=== PATIENT | female | born 1985 | race Caucasian/White ===

== ENCOUNTER 2025-05-28 04:49 | Inpatient (IN) | payer OTHER, SELFPAY ==
[2025-05-28] VITALS (21 sets, daily range): BP systolic 121–146; BP diastolic 77–95; PULSE 65–89; RESP 16–20; TEMP 36.6–37.2; O2SAT 93–99; BMI 31.3; BMI 31.1; BMI 31.2
--- OUTSIDE RECORDS SUMMARY | 2025-05-28 04:51 | XMS_ITS | Clinical Summary ---
Author Organization [facility] Address [address] [place] [id number] Care Team Providers Care Media Services Coordinator Name Role Phone Pcp, No Primary Care Provider Unavailabl e Allergies Active Allergy Reactions Criticality Noted Date Comments Doxycycline Rash 03/23/2012 Methylprednisolone Other - Describe In Comment Field 05/26/2025 eyes inflammation Medications multivitamin capsule Take 1 capsule by mouth once daily. Active HYDROcodone-acet aminophen, 5-500 mg, (VICODIN) Tab tablet Take 1 tablet by mouth every 4 hours if needed for Pain. Max acetaminophen dose: 4000mg in 24 hrs. 12 tablet 0 012 Active ondansetron (ZOFRAN ODT) [address] 1 tablet on the tongue every 8 hours if needed for Nausea/Vomiting . 6 tablet 0 012 Active promethazine (PHENERGAN) 12.5 mg suppositoryIndic ations:Nausea and vomiting, unspecified vomiting type Insert 1 Suppository (12.5 mg) rectally every 6 hours if needed for Nausea/Vomiting . 10 Suppository 025 Active promethazine (PHENERGAN) 12.5 mg suppositoryIndic ations:Nausea and vomiting, unspecified vomiting type Insert 1 Suppository (12.5 mg) rectally every 6 hours if needed for Nausea/Vomiting . 10 Suppository 025 05/26 Discontinued Active Problems Problem Noted Date Diagnosed Date Endometriosis of uterus 04/30/2009 Infertility 04/30/2009 Dysplasia of cervix, unspecified 03/16/2007 Encounters Date Type Department Care Team Description 05/26/2025 6:01 AM CDT - 05/26/2025 1:27 PM CDT Emergency [facility] [address] [place] [address] Damian Lemon MD Nardi, Mikhail Rodríguez MD Nausea and vomiting, unspecified vomiting type (Primary Dx); Generalized abdominal pain Discharge Disposition: Home Self Care 05/26/2025 Travel from Last 3 Months Immunizations Immunization Administration Dates Next Due Hepatitis B (Adult) 06/11/2004,05/02/2001,1999 Td (Age >=7 Years) 10/23/1994 Tdap 12/11/2008 Tuberculin (PPD) 12/15/2010 Family History Medical History Relation Name Comments GI Disease Daughter Adopted child s brianda 2016. Short gut. Intestine is missing after drug reaction. Asthma Maternal Grandfather Matty COPD Hypertension Maternal Grandfather Matty Cancer Maternal Grandmother Carolina Lung ca ncer Diabetes Maternal Grandmother Carolina Thyroid Disease Mother Dee Panhypopituitarism Son Biolog[employer] l child of the patient. Relation Name Status Comments Brother Jerome Alive Daughter Alive Father Monica Jr Alive Maternal Grandfather Matty Alive Maternal Grandmother Carolina Alive Mother Dee Alive Paternal Grandfather Monica Sr Alive Paternal Grandmother Mariana Alive Sister Fay Alive Son Alive Social History Tobacco Use Types Packs/Day Years Used Date Smoking Tobacco: Former Smokeless Tobacco: Never Tobacco Cessation:Counseling Given: Yes Comments:She quit smoking around 2009. Alcohol Use Standard Drinks/Week Comments No 0 (1 standard drink = 0.6 oz pur e alcohol) Interpersonal Safety Answer Date Record ed Are you being hit, kicked, p ushed or yelled at (see row info)? 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 Gender Identity Not on file Sexual Orientation Not on file Obstetrics History Para Term AB IAB SAB Ectopic Multiple Livin g Live Births 0 0 0 0 0 0 0 0 0 0 Last Filed Vital Signs Vital Sign Reading Time Taken Comments Blood Pressure 125/82 05/26/2025 1:00 PM CDT Pulse 95 05/26/2025 1:00 PM CDT Temperature 36.7 C (98 F) 05/26/2025 6:06 AM CDT Respiratory Rate 16 05/26/2025 6:06 AM CDT Oxygen Saturation 97% 05/26/2025 1:00 PM CDT Inhaled Oxygen Concentration - - Weight 94.6 kg (208 lb 8 oz) 05/26/2025 6:06 AM CDT Height 170.2 cm (5' 7) 05/26/2025 6:06 AM CDT Body Mass Index 32.66 05/26/2025 6:06 AM CDT Plan of Treatment Health Maintenance Due Date Last Done Comments Depression screening for age 12+ 1995 BMI (ht and wt on same day) for age 18+ 2001 Pap test for age 21-65 10/28/2013 1, 09/25/2009, 09/25/2009, Additional history exists Tetanus booster 12/11/2018 12/11/2008, 10/23/1994 COVID-19 vaccine series ( season) 2024 08/31/2022, 08/27/2021, 12/18/2020, Additional history exists Influenza Vaccine (#1) 2025 Hepatitis B series for 19+ Completed 06/11, 05/02/2001, 07/27/2000 HIV for age 15-65 Completed 03/16/2007 Hepatitis C screening for age 18-79 Completed 03/16/2007 Pneumococcal series for age 6-49 Aged Out No longer eligible based on patient's age to complete this topic Procedures Procedure Name Priority Date/Time Associated Diagnosis Comments CT ABDOMEN PELVIS W STAT 05/26/2025 9 :28 AM CDT URINALYSIS MICROSCOPIC STAT 05/26/2025 8:09 AM CDT UA W/ SEDIMENT EXAM REFLEXED PER CRITERIA STAT 05/26/2025 8:09 AM CDT CBC WITH AUTO DIFFERENTIAL STAT 05/26/2025 6:19 AM CDT MAGNESIUM STAT 05/26/2025 6:19 AM CDT ,SERUM QUALITATIVE STAT 05/26/2025 6:19 AM CDT COMP METABOLIC PANEL STAT 05/26/2025 6:19 AM CDT CBC WITH AUTO DIFFERENTIAL STAT 05/26/2025 6:19 AM CDT DISTANCE LEARNING TECHNICIAN THIN PREP PAP DIAGNOSTIC IMAGED Routine 10/28/2010 5:10 PM 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 DYSPLASIA OF CERVIX UNSPECIFIED ANTI HIV 1/2 Routine 03/16/2007 10:40 AM CDT Screening Exam Venereal Disease ANTI HCV Routine 03/16/2007 10:40 AM CDT Screening Exam Venereal Disease from Last 3 Months or Most Recently Relevant to Health Maintenance Results * CT Abdomen Pelvis w IV (Oral Contrast NO) (05/26/2025 9:28 AM CDT) Anatomical Region Laterality Modality Abdomen, Pelvis, AORTA, LIVER, SPLEEN Computed Tomography Mikhail Mccarthy MD CT Final R esult * (ABNORMAL) URINALYSIS MICROSCOPIC (05/26/2025 8:09 AM CDT) RBC 0-2 0-2, None Seen /HPF 05/26/2025 8:29 AM CDT [facility] WBC 0-2 0-2, 3-5, None Seen /HPF 05/26/2025 8:29 AM T [facility] BACTERIA Moderate(A) None Seen, Rare, Few Bacteria/ HPF 05/26/2025 8:29 AM T [facility] EPITHELIAL CELLS Moderate(A) None Seen, Few Epi/HPF 05/26/2025 8:29 AM T [facility] Mucus Present 05/26/2025 8:29 AM T [facility] Urine URINE SPECIMEN / Unknown Non-Blood / Unknown 05/26/2025 8:09 AM CDT 05/26/2025 8:17 AM CDT Damian Lemon MD URINE Final Result [facility] [address] [address] * (ABNORMAL) UA W/ SEDIMENT EXAM REFLEXED PER CRITERIA (05/26/2025 8:09 AM CDT) COLOR Yellow Yellow Color 05/26/2025 8:29 AM [facility] CLARITY Clear Clear Clarity 05/26/2025 8:29 AM [facility] SPECIFIC GRAVITY,URINE >=1.030(A) 1.010, 1.015, 1.020, 1.025 05/26/2025 8:29 AM [facility] PH,URINE 6.0 6.0, 7.0, 8.0, 5.5, 6.5, 7.5, 8.5 05/26/2025 8:29 AM [facility] UROBILINOGEN, QUALITATIVE Normal Normal EU/dl 05/26/2025 8:29 AM [facility] PROTEIN, URINE Negative Negative mg/dL 05/26/2025 8:29 AM [facility] GLUCOSE, URINE Negative Negative mg/dL 05/26/2025 8:29 AM [facility] KETONES,URINE >=80(A) Negative mg/dL 05/26/2025 8:29 AM [facility] BILIRUBIN,URI NE Negative Negative 05/26/2025 8:29 AM [facility] OCCULT BLOOD,URINE Trace(A) Negative 05/26/2025 8:29 AM [facility] NITRITE Negative Negative 05/26/2025 8:29 AM [facility] LEUKOCYTE ESTERASE Negative Negative 05/26/2025 8:29 AM [facility] Urine URINE SPECIMEN / Unknown Non-Blood / Unknown 05/26/2025 8:09 AM CDT 05/26/2025 8:17 AM CDT us Damian Lemon MD URINE Final Result [facility] [address] [address] * (ABNORMAL) CBC WITH AUTO DIFFERENTIAL (05/26/2025 6:19 AM CDT) WHITE BLOOD COUNT 10.5 4.5 - 11.0 thou/cu mm 05/26/2025 6:26 AM [facility] RED BLOOD COUNT 4.97 4.00 - 5.20 mil/cu mm 05/26/2025 6:26 AM [facility] HEMOGLOBIN 14.3 12.0 - 16.0 g/dL 05/26/2025 6:26 AM [facility] HEMATOCRIT 40.6 33.0 - 51.0 % 05/26/2025 6:26 AM [facility] MCV 82 80 - 100 fL 05/26/2025 6:26 AM [facility] MCH 28.8 26.0 - 34.0 pg 05/26/2025 6:26 AM [facility] MCHC 35.2 32.0 - 36.0 g/dL 05/26/2025 6:26 AM [facility] RDW 12.9 11.5 - 15.5 % 05/26/2025 6:26 AM [facility] PLATELET COUNT 233 140 - 440 thou/cu mm 05/26/2025 6:26 AM [facility] MPV 11.2(H) 6.5 - 11.0 fL 05/26/2025 6:26 AM [facility] % NEUT 80.2 % 05/26/2025 6:26 AM [facility] % LYMPH 14.7 % 05/26/2025 6:26 AM [facility] % MONO 4.7 % 05/26/2025 6:26 AM [facility] % EOS 0.2 % 05/26/2025 6:26 AM [facility] % BASO 0.2 % 05/26/2025 6:26 AM T [facility] ABSOLUTE NEUTROPHILS 8.5(H) 1.7 - 7.0 thou/cu mm 05/26/2025 6:26 AM [facility] ABSOLUTE LYMPHOCYTES 1.6 0.9 - 2.9 thou/cu mm 05/26/2025 6:26 AM [facility] ABSOLUTE MONOCYTES 0.5 <0.9 thou/cu mm 05/26/2025 6:26 AM [facility] ABSOLUTE EOSINOPHILS 0.0 <0.5 thou/cu mm 05/26/2025 6:26 AM [facility] ABSOLUTE BASOPHILS 0.0 <0.3 thou/cu mm 05/26/2025 6:26 AM [facility] Blood BLOOD SPECIMEN / Unknown IV Start / Unknown 05/26/2025 6:19 AM CDT 05/26/2025 6:22 AM CDT us Damian Lemon MD HEMATOLOGY Final Result Performing Organization Address City/[facility]/ZIP Co de Phone Number [facility] [address] [phone] * ,SERUM QUALITATIVE (05/26/2025 6:19 AM CDT) ,SERU M Negative Negative 05/26/2025 6:39 AM T [facility] Blood BLOOD SPECIMEN / Unknown IV Start / Unknown 05/26/2025 6:19 AM CDT 05/26/2025 6:21 AM CDT us Damian Lemon MD CHEMISTRY Final Result Performing Organization Address City/[facility]/ZIP Co de Phone Number [facility] [address] [address] * MAGNESIUM (05/26/2025 6:19 AM CDT) MAGNESIUM 2.0 1.6 - 2.6 mg/dL 05/26/2025 6:44 AM [facility] Blood BLOOD SPECIMEN / Unknown IV Start / Unknown 05/26/2025 6:19 AM CDT 05/26/2025 6:21 AM CDT us Damian Lemon MD CHEMISTRY Final Result [facility] [address] [address] * (ABNORMAL) COMP METABOLIC PANEL (05/26/2025 6:19 AM T) SODIUM 137 136 - 145 mmol/L 05/26/2025 6:44 AM [facility] POTASSIUM 4.2 3.5 - 5.1 mmol/L 05/26/2025 6:44 AM [facility] CHLORIDE 99 98 - 107 mmol/L 05/26/2025 6:44 AM [facility] CO2,TOTAL 20(L) 22 - 29 mmol/L 05/26/2025 6:44 AM [facility] ANION GAP 18 5 - 18 05/26/2025 6:44 AM [facility] GLUCOSE 128(H) 70 - 99 mg/dL 05/26/2025 6:44 AM [facility] CALCIUM 9.7 8.8 - 10.4 mg/dL 05/26/2025 6:44 AM [facility] Comment: Reference ranges for this test were updated on 08/27/2024 to reflect our healthy population more accurately. Reference range changes are not retroactively applied to results, but previous results using the same methodology can be interpreted in the context of the new reference range. BUN 13 6 - 20 mg/dL 05/26/2025 6:44 AM [facility] CREATININE 0.72 0.50 - 0.90 mg/dL 05/26/2025 6:44 AM [facility] BUN/CREAT RATIO 18 10 - 20 6:44 AM [facility] eGFR >90 >90 mL/min/1.7 3m2 05/26/2025 6:44 AM [facility] Comment:As of 2022, eG FR is calculated by the CKD-EPI creatinine equation without race adjustment. eGFR can be influenced by muscle mass, exercise, and diet. The reported eGFR is an estimation only and is only applicable if the renal function is stable. ALBUMIN 4.7 4.0 - 4.9 g/dL 05/26/2025 6:44 AM T [facility] PROTEIN,TOTAL 7.5 6.0 - 8.0 g/dL 05/26/2025 6:44 AM T [facility] BILIRUBIN,TOTAL 0.5 0.0 - 1.2 mg/dL 05/26/2025 6:44 AM [facility] ALK PHOSPHATASE 58 35 - 104 IU/L 05/26/2025 6:44 AM [facility] ALT (SGPT) 22 10 - 35 IU/L 05/26/2025 6:44 AM [facility] AST (SGOT) 16 10 - 35 IU/L 05/26/2025 6:44 AM [facility] Blood BLOOD SPECIMEN / Unknown IV Start / Unknown 05/26/2025 6:19 AM CDT 05/26/2025 6:21 AM T Damian Lemon MD CHEMISTRY Final Result [facility] [address] [address] * DISTANCE LEARNING TECHNICIAN THIN PREP PAP DIAGNOSTIC IMAGED (10/28/2010 5:10 PM 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 INTERPRETATION/RES ULT Negative for intraepithelial lesion or malignancy (NIL) Non-Neoplastic Findings Reactive cellular changes (includes inflammatory,react tiffanie And/or reparative changes). Organisms Shift in dona suggestive of bacterial vaginosis Cytology 1st Screener :had Cytology 2nd Screener :wst Signed by : Delmy Ruby M.D. This specimen was screened by the FDA approved ThinPrep Imaging System and manually reviewed. NOTE: The Pap test is a screening technique, not a diagnostic procedure. It is used primarily to screen for squamous cancers and precursor lesions. Published studies have shown that it is subject to both false negative and false positive results. The pap test should not be used as the sole means to diagnose or exclude pre-malignant and malignant lesions. 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 10/28/2010 5:07 PM 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 us Viki Mao MD PATHOLOGY/CYTOLOGY Fi nal Result [facility] [place]NAL ZIP [id number] [address] * ANTI HCV (03/16/2007 10:40 AM CDT) ANTI HCV Non-reacti ve [facility] Blood specimen (specimen) BLOOD SPECIMEN / Unknown 03/16/2007 10:40 AM CDT 03/16/2007 10:35 AM CDT us Viki Mao MD SEND OUTS Final Result [facility] [place]NAL ZIP [id number] [address] * ANTI HIV 1/2 (03/16/2007 10:40 AM CDT) ANTI HIV 1/2 Non-reacti ve [facility] Blood specimen (specimen) BLOOD SPECIMEN / Unknown 03/16/2007 10:40 AM CDT 03/16/2007 10:35 AM CDT us Viki Mao MD SEND OUTS Final Result [facility] [place]NAL ZIP [id number] [address] from Last 3 Months or Most Recently Relevant to Health Maintenance Insurance [facility] Advance Directives * Full Code (Latest Code Status on File) Date Activated Date Inactivated Comments 03/18/2009 11:53 AM 03/18/2009 8:55 PM Care Teams Media Services Coordinator Relationship Specialty Start Date End Date Pcp, No . PCP - General 05/26/25
--- NOTE | 2025-05-28 05:02 | ED.GENADULT ---
HPI - General Adult General Time Seen by Provider: 05:02 <Cheri Dukes MD - Last Filed: 05/28/25 08:32> Date Seen: 05/28/25 <Cheri Dukes MD - Last Filed: 05/28/25 08:32> Chief complaint: Nausea/Vomiting <Cheri Dukes MD - Last Filed: 05/28/25 08:32> Stated complaint: vomiting x 5 days <Cheri Dukes MD - Last Filed: 05/28/25 08:32> Time Seen by Provider: 05/28/25 05:01 <Cheri Dukes MD - Last Filed: 05/28/25 08:32> Source: patient <Cheri Dukes MD - Last Filed: 05/28/25 08:32> Mode of arrival: ambulatory <Cheri Dukes MD - Last Filed: 05/28/25 08:32> History of Present Illness HPI narrative: Suzanna is a 39-year-old female with a past medical history of endometriosis who presents to the emergency department for evaluation of abdominal pain. Patient complains of severe abdominal pain, nausea, vomiting, decreased oral intake since last . Patient states that last she had an MRI for her endometriosis. Patient states that after the exam she had nausea, vomiting, decreased oral intake. Patient states that initially she thought it was due to the MRI however symptoms worsened. Patient complains of pain in the right upper quadrant of her abdomen that is worse with eating and drinking. Patient states that she was seen in the [facility] on Monday/Monday who treated her with IV fluids, pain meds, antiemetics, told her that she was having a gallbladder attack and eventually discharged her. Patient states that she had a CT scan done in the emergency department. Patient states that since this time she has had ongoing right upper quadrant pain, nausea, vomiting. Patient denies any fever, chills, chest pain, shortness of breath. Patient states that she has tried taking Zofran, Phenergan, with no improvement of her symptoms. Patient reports history of appendectomy in the past. <Cheri Dukes MD - Last Filed: 05/28/25 08:32> Related Data Home medications: Home Medications ?Medication ?Instructions ?Recorded ?Confirmed alprazolam 0.5 mg tablet mg PO DAILY 05/28/25 dextroamphetamine-amphetamine ER 1 cap PO BID 05/28/25 05/28/25 20 mg 24hr capsule,extend release <Cheri Dukes MD - Last Filed: 05/28/25 08:32> Allergies/adverse reactions: Allergies Allergy/AdvReac Type Severity Reaction Status Date / Time doxycycline Allergy Verified 05/28/25 05:03 Sulfa (Sulfonamide Allergy Verified 05/28/25 05:03 Antibiotics) <Cheri Dukes MD - Last Filed: 05/28/25 08:32> Review of Systems Narrative: Past medical history, past surgical history, medications, allergies, family history, and social history were reviewed with the patient. No additional pertinent items. A medically appropriate review of systems was performed with pertinent positives and negatives noted in HPI, all other systems negative. <Cheri Dukes MD - Last Filed: 05/28/25 08:32> PFSH PFSH Social History: Social History Do you use any of these nicotine containing products: None How often do you have a drink containing alcohol: never AUDIT-C Alcohol total score: 0 Non-prescribed substance use: denies use <Cheri Dukes MD - Last Filed: 05/28/25 08:32> Exam Narrative: Exam Narrative: General: Afebrile, in distress secondary to pain, dry heaving HEENT: Normocephalic, atraumatic, conjunctiva normal. MMM Neck: non-tender, supple Cardio: regular rate. regular rhythm Resp: Normal work of breathing, no respiratory distress, lungs clear bilaterally, no wheezing, rhonchi, rales Chest/Back: no visual signs of trauma, no midline tenderness, no CVA tenderness Abdomen: soft, non distension, tenderness to palpation diffusely throughout the abdomen however mostly tender in the right upper quadrant with no rebound, no guarding, no peritoneal signs Neuro: alert and fully oriented. CN II-XII grossly intact. Grossly normal strength and sensation in all extremities. MSK: no deformities. Normal range of motion Integumentary/Skin: no rash visualized, normal color Psych: normal affect, normal behavior <Cheri Dukes MD - Last Filed: 05/28/25 08:32> Const: Vital Signs, click to edit/add: Vital Signs - 24 hr 05/28/25 04:57 05/28/25 06:16 05/28/25 06:40 Temperature 98 F Pulse Rate 71 77 Pulse Rate [Pulse Oximeter] 77 Respiratory Rate 16 16 Blood Pressure Blood Pressure [Ri ght Upper Arm] 145/95 H Pulse Oximetry 99 97 98 Oxygen Delivery Me thod Room Air 05/28/25 06:51 05/28/25 06:52 05/28/25 06:53 Temperature Pulse Rate 77 67 65 Pulse Rate [Pulse Oximeter] Respiratory Rate 18 Blood Pressure 138/90 H Blood Pressure [Ri ght Upper Arm] Pulse Oximetry 97 99 98 Oxygen Delivery Me thod 05/28/25 07:00 05/28/25 07:15 05/28/25 07:32 Temperature Pulse Rate 72 81 71 Pulse Rate [Pulse Oximeter] Respiratory Rate 16 Blood Pressure Blood Pressure [Ri ght Upper Arm] Pulse Oximetry 96 96 96 Oxygen Delivery Me thod 05/28/25 07:45 05/28/25 08:00 05/28/25 08:15 Temperature Pulse Rate 74 73 71 Pulse Rate [Pulse Oximeter] Respiratory Rate Blood Pressure Blood Pressure [Ri ght Upper Arm] Pulse Oximetry 96 97 97 Oxygen Delivery Me thod 05/28/25 09:42 05/28/25 11:58 Temperature 97.8 F Pulse Rate Pulse Rate [Pulse Oximeter] 89 Respiratory Rate 16 16 Blood Pressure 146/95 H Blood Pressure [Ri ght Upper Arm] 137/89 Pulse Oximetry 97 Oxygen Delivery Me thod Room Air <Cheri Dukes MD - Last Filed: 05/28/25 08:32> Vital Signs, click to edit/add: Vital Signs - 24 hr 05/28/25 04:57 05/28/25 06:16 05/28/25 06:40 Temperature 98 F Pulse Rate 71 77 Pulse Rate [Pulse Oximeter] 77 Respiratory Rate 16 16 Blood Pressure Blood Pressure [Ri ght Upper Arm] 145/95 H Pulse Oximetry 99 97 98 Oxygen Delivery Me thod Room Air 05/28/25 06:51 05/28/25 06:52 05/28/25 06:53 Temperature Pulse Rate 77 67 65 Pulse Rate [Pulse Oximeter] Respiratory Rate 18 Blood Pressure 138/90 H Blood Pressure [Ri ght Upper Arm] Pulse Oximetry 97 99 98 Oxygen Delivery Me thod 05/28/25 07:00 05/28/25 07:15 05/28/25 07:32 Temperature Pulse Rate 72 81 71 Pulse Rate [Pulse Oximeter] Respiratory Rate 16 Blood Pressure Blood Pressure [Ri ght Upper Arm] Pulse Oximetry 96 96 96 Oxygen Delivery Me thod 05/28/25 07:45 05/28/25 08:00 05/28/25 08:15 Temperature Pulse Rate 74 73 71 Pulse Rate [Pulse Oximeter] Respiratory Rate Blood Pressure Blood Pressure [Ri ght Upper Arm] Pulse Oximetry 96 97 97 Oxygen Delivery Me thod 05/28/25 09:42 05/28/25 11:58 Temperature 97.8 F Pulse Rate Pulse Rate [Pulse Oximeter] 89 Respiratory Rate 16 16 Blood Pressure 146/95 H Blood Pressure [Ri ght Upper Arm] 137/89 Pulse Oximetry 97 Oxygen Delivery Me thod Room Air <Rasheeda Miguel MD - Last Filed: 05/28/25 13:35> Course Reevaluation(s) Time of Reevaluation #1: 10:57 <Rasheeda Miguel MD - Last Filed: 05/28/25 13:35> Reevaluation #1: Patient requesting a dose of Compazine before she has her MRI. 5 mg IV was ordered. <Rasheeda Miguel MD - Last Filed: 05/28/25 13:35> Time of Reevaluation #2: 13:03 <Rasheeda Miguel MD - Last Filed: 05/28/25 13:35> Reevaluation #2: Did review with patient that her MRCP is not showing any retained stone. Her abdominal pain is coming back. Will give her a dose of Dilaudid, will talk to General surgery about hospitalizing until she can get her gallbladder out. Patient is in agreement with this. <Rasheeda Miguel MD - Last Filed: 05/28/25 13:35> Consultations Consultation #1: Have spoken with Dr. Pinedo, she accepts patient to hospital. <Rasheeda Miguel MD - Last Filed: 05/28/25 13:35> Time: 13:15 <Rasheeda Miguel MD - Last Filed: 05/28/25 13:35> Vital Signs Vital signs: Initial Vital Signs Temperature 98 F 05/28/25 04:57 Temperature Source Temporal Artery Scan 05/28/25 04:57 Pulse Rate 77 05/28/25 04:57 Respiratory Rate 16 05/28/25 04:57 Blood Pressure 145/95 H 05/28/25 04:57 Blood Pressure Mean 111 H 05/28/25 04:57 Blood Pressure Position Semi-Fowlers 05/28/25 04:57 Pulse Oximetry 99 05/28/25 04:57 Oxygen Delivery Method Room Air 05/28/25 04:57 Vital Signs Temperature 98 F 05/28/25 04:57 Pulse Rate 77 05/28/25 04:57 Respiratory Rate 16 05/28/25 04:57 Blood Pressure 145/95 H 05/28/25 04:57 Pulse Oximetry 99 05/28/25 04:57 Oxygen Delivery Method Room Air 05/28/25 04:57 Temperature 97.8 F 05/28/25 11:58 Pulse Rate 89 05/28/25 11:58 Respiratory Rate 16 05/28/25 11:58 Blood Pressure 137/89 05/28/25 11:58 Pulse Oximetry 97 05/28/25 11:58 Oxygen Delivery Method Room Air 05/28/25 11:58 <Cheri Dukes MD - Last Filed: 05/28/25 08:32> Initial Vital Signs Temperature 98 F 05/28/25 04:57 Temperature Source Temporal Artery Scan 05/28/25 04:57 Pulse Rate 77 05/28/25 04:57 Respiratory Rate 16 05/28/25 04:57 Blood Pressure 145/95 H 05/28/25 04:57 Blood Pressure Mean 111 H 05/28/25 04:57 Blood Pressure Position Semi-Fowlers 05/28/25 04:57 Pulse Oximetry 99 05/28/25 04:57 Oxygen Delivery Method Room Air 05/28/25 04:57 Vital Signs Temperature 98 F 05/28/25 04:57 Pulse Rate 77 05/28/25 04:57 Respiratory Rate 16 05/28/25 04:57 Blood Pressure 145/95 H 05/28/25 04:57 Pulse Oximetry 99 05/28/25 04:57 Oxygen Delivery Method Room Air 05/28/25 04:57 Temperature 97.8 F 05/28/25 11:58 Pulse Rate 89 05/28/25 11:58 Respiratory Rate 16 05/28/25 11:58 Blood Pressure 137/89 05/28/25 11:58 Pulse Oximetry 97 05/28/25 11:58 Oxygen Delivery Method Room Air 05/28/25 11:58 <Rasheeda Miguel MD - Last Filed: 05/28/25 13:35> Medications Administered Medications: Generic Name Dose Route Start Last Admin Trade Name Freq PRN Reason Stop Dose Admin Prochlorperazine 5 mg 05/28/25 10:57 05/28/25 11:04 Prochlorperazine 5 Mg/Ml Vial IV 5 mg Q6H PRN Administration Discontinued Medications Generic Name Dose Route Start Last Admin Trade Name Freq PRN Reason Stop Dose Admin Diphenhydramine HCl 25 mg 05/28/25 05:22 05/28/25 05:35 Diphenhydramine 50 Mg/Ml Inj IVP 05/28/25 05:23 25 mg ONCE ONE Administration Famotidine 20 mg 05/28/25 05:22 05/28/25 05:35 Famotidine 10 Mg/Ml Inj IVP 05/28/25 05:23 20 mg ONCE ONE Administration Hydromorphone HCl 0.5 mg 05/28/25 05:11 05/28/25 05:36 Hydromorphone 0.5 Mg/0.5 Ml Inj IVP 05/28/25 05:12 0.5 mg ONCE ONE Administration Sodium Chloride 1,000 mls @ 1,000 mls/hr 05/28/25 05:15 05/28/25 09:41 0.9 % Sodium Chloride 1000 Ml IV 05/28/25 06:14 Infused .Q1H ALLEGRA Infusion Ondansetron HCl 4 mg 05/28/25 05:11 05/28/25 10:55 Ondansetron 2 Mg/Ml Inj IVP 05/28/25 05:12 Not Given ONCE ONE Prochlorperazine 10 mg 05/28/25 05:22 05/28/25 05:35 Prochlorperazine 5 Mg/Ml Vial IV 05/28/25 05:23 10 mg ONCE ONE Administration <Cheri Dukes MD - Last Filed: 05/28/25 08:32> Generic Name Dose Route Start Last Admin Trade Name Freq PRN Reason Stop Dose Admin Prochlorperazine 5 mg 05/28/25 10:57 05/28/25 11:04 Prochlorperazine 5 Mg/Ml Vial IV 5 mg Q6H PRN Administration Discontinued Medications Generic Name Dose Route Start Last Admin Trade Name Freq PRN Reason Stop Dose Admin Diphenhydramine HCl 25 mg 05/28/25 05:22 05/28/25 05:35 Diphenhydramine 50 Mg/Ml Inj IVP 05/28/25 05:23 25 mg ONCE ONE Administration Famotidine 20 mg 05/28/25 05:22 05/28/25 05:35 Famotidine 10 Mg/Ml Inj IVP 05/28/25 05:23 20 mg ONCE ONE Administration Hydromorphone HCl 0.5 mg 05/28/25 05:11 05/28/25 05:36 Hydromorphone 0.5 Mg/0.5 Ml Inj IVP 05/28/25 05:12 0.5 mg ONCE ONE Administration Sodium Chloride 1,000 mls @ 1,000 mls/hr 05/28/25 05:15 05/28/25 09:41 0.9 % Sodium Chloride 1000 Ml IV 05/28/25 06:14 Infused .Q1H ALLEGRA Infusion Ondansetron HCl 4 mg 05/28/25 05:11 05/28/25 10:55 Ondansetron 2 Mg/Ml Inj IVP 05/28/25 05:12 Not Given ONCE ONE Prochlorperazine 10 mg 05/28/25 05:22 05/28/25 05:35 Prochlorperazine 5 Mg/Ml Vial IV 05/28/25 05:23 10 mg ONCE ONE Administration <Rasheeda Miguel MD - Last Filed: 05/28/25 13:35> Medical Decision Making MDM Narrative Medical decision making narrative: Suzanna is a 39-year-old female with a past medical history of endometriosis who presents to the emergency department for evaluation of abdominal pain. Upon arrival patient is nontoxic appearing, afebrile, in distress secondary to pain, dry heaving. Patient slightly hypertensive upon arrival 145/95, heart rate 77. Oxygen 99% on room air. Differential diagnosis includes but is not limited to gastritis versus gastroenteritis versus pancreatitis versus cholecystitis versus biliary colic versus colitis versus obstruction among others. Upon arrival patient was treated with IV Pepcid, Compazine, Benadryl, 1 L IV fluid bolus, Dilaudid, comprehensive labs and right upper quadrant ultrasound performed. Comprehensive labs remarkable for leukocytosis with white blood cell count of 14.6, hemoglobin 15.3, no acute metabolic or electrolyte abnormality, no transaminitis, normal lipase. Urinalysis with no evidence of acute infection, positive for blood, ketones, bilirubin. I personally reviewed and interpreted right upper quadrant ultrasound which demonstrates gallbladder sludge with dilated common duct with echogenic structure within the duct consistent with choledocholithiasis. I discussed patient with General Surgeon Dr. Pinedo who recommend ERCP. If ERCP is negative ok to admit and if positive for choledocholithiaisis would require transfer.. I updated patient understands and agrees plan. Patient signed out to [facility] provider Dr. Uriarte. <Cheri Dukes MD - Last Filed: 05/28/25 08:32> Lab Data Labs: Lab Results 05/28/25 05/28/25 Range/Units 05:11 06:11 WBC 14.64 H (4.50-11.00) K/uL RBC 5.43 H (4.00-5.20) m/uL Hgb 15.3 (12.0-16.0) gm/dL Hct 44.1 (33.0-51.0) % MCV 81 (80-100) fL MCH 28 (26-34) pg MCHC 35 (32-36) gm/dL RDW Coeff of [place] 12.5 (11.5-15.5) % Plt Count 234 (140-440) K/uL Neut % (Auto) 81.2 H (42.0-72.0) % Lymph % (Auto) 10.2 L (20-44) % [place] % (Auto) 8.3 (0.0-11.0) % Eos % (Auto) 0.0 (0.0-7.0) % Baso % (Auto) 0.1 (0.0-3.0) % Neut # (Auto) 11.90 H (1.7-7.0) K/uL Lymph # (Auto) 1.50 (0.90-2.90) K/uL [place] # (Auto) 1.20 H (0.00-0.90) K/UL Eos # (Auto) 0.00 (0.00-0.50) K/uL Baso # (Auto) 0.00 (0.00-0.30) K/uL Abs Immat Gran (auto) 0.00 (0.00-0.30) K/uL Imm/Tot Granulo (auto) 0.2 % Sodium 135 (135-149) mmol/L Potassium 3.8 (3.6-5.1) mmol/L Chloride 98 (96-114) mmol/L Carbon Dioxide 24 (20-32) mmol/L Anion Gap 13 (7-15) mEq/L BUN 14 (5-24) mg/dL Creatinine 0.6 (0.5-1.5) mg/dL Estimated Creat Clear 119.99 Estimated GFR 116 ml/min Glucose 115 (60-115) mg/dL Calcium 9.8 (8.4-10.6) mg/dL Total Bilirubin 1.0 (0.1-1.5) mg/dL AST 28 (12-35) U/L ALT 23 (4-35) U/L Alkaline Phosphatase 59 (40-150) U/L Total Protein 8.5 H (6.0-8.3) g/dL Albumin 5.2 H (3.3-5.0) g/dL Lipase 69 (23-300) U/L Urine Color Yellow (Yellow) Urine Appearance Clear (Clear) Urine pH 6.0 (5.0-8.5) Ur Specific [place] >= 1.030 (1.000-1.030) Urine Protein 3+ A (Negative) Urine Glucose (UA) Negative (Negative) Urine Ketones 4+ A (Negative) Urine Blood 1+ A (Negative) Urine Nitrite Negative (Negative) Urine Bilirubin 2+ A (Negative) Urine Urobilinogen 0.2 (0.2-1.0) Ur Leukocyte Esterase Negative (Negative) Urine RBC 0-2 (0-2) Urine WBC 2-5 (0-5) Ur Squamous Epith Cells Moderate A (None-Few) Other Sediment FEW YEAST (None) Urine Bacteria Moderate A (None) Urine Mucus Many A (None) Urine HCG, Qual Negative (Negative) <Cheri Dukes MD - Last Filed: 05/28/25 08:32> Lab Results 05/28/25 05/28/25 Range/Units 05:11 06:11 WBC 14.64 H (4.50-11.00) K/uL RBC 5.43 H (4.00-5.20) m/uL Hgb 15.3 (12.0-16.0) gm/dL Hct 44.1 (33.0-51.0) % MCV 81 (80-100) fL MCH 28 (26-34) pg MCHC 35 (32-36) gm/dL RDW Coeff of [place] 12.5 (11.5-15.5) % Plt Count 234 (140-440) K/uL Neut % (Auto) 81.2 H (42.0-72.0) % Lymph % (Auto) 10.2 L (20-44) % [place] % (Auto) 8.3 (0.0-11.0) % Eos % (Auto) 0.0 (0.0-7.0) % Baso % (Auto) 0.1 (0.0-3.0) % Neut # (Auto) 11.90 H (1.7-7.0) K/uL Lymph # (Auto) 1.50 (0.90-2.90) K/uL [place] # (Auto) 1.20 H (0.00-0.90) K/UL Eos # (Auto) 0.00 (0.00-0.50) K/uL Baso # (Auto) 0.00 (0.00-0.30) K/uL Abs Immat Gran (auto) 0.00 (0.00-0.30) K/uL Imm/Tot Granulo (auto) 0.2 % Sodium 135 (135-149) mmol/L Potassium 3.8 (3.6-5.1) mmol/L Chloride 98 (96-114) mmol/L Carbon Dioxide 24 (20-32) mmol/L Anion Gap 13 (7-15) mEq/L BUN 14 (5-24) mg/dL Creatinine 0.6 (0.5-1.5) mg/dL Estimated Creat Clear 119.99 Estimated GFR 116 ml/min Glucose 115 (60-115) mg/dL Calcium 9.8 (8.4-10.6) mg/dL Total Bilirubin 1.0 (0.1-1.5) mg/dL AST 28 (12-35) U/L ALT 23 (4-35) U/L Alkaline Phosphatase 59 (40-150) U/L Total Protein 8.5 H (6.0-8.3) g/dL Albumin 5.2 H (3.3-5.0) g/dL Lipase 69 (23-300) U/L Urine Color Yellow (Yellow) Urine Appearance Clear (Clear) Urine pH 6.0 (5.0-8.5) Ur Specific [place] >= 1.030 (1.000-1.030) Urine Protein 3+ A (Negative) Urine Glucose (UA) Negative (Negative) Urine Ketones 4+ A (Negative) Urine Blood 1+ A (Negative) Urine Nitrite Negative (Negative) Urine Bilirubin 2+ A (Negative) Urine Urobilinogen 0.2 (0.2-1.0) Ur Leukocyte Esterase Negative (Negative) Urine RBC 0-2 (0-2) Urine WBC 2-5 (0-5) Ur Squamous Epith Cells Moderate A (None-Few) Other Sediment FEW YEAST (None) Urine Bacteria Moderate A (None) Urine Mucus Many A (None) Urine HCG, Qual Negative (Negative) <Rasheeda Miguel MD - Last Filed: 05/28/25 13:35> Imaging Data MRI - abdomen: Attestation: I have reviewed the pertinent imaging results. <Rasheeda Miguel MD - Last Filed: 05/28/25 13:35> Radiologist's impression: Patient: SUZANNA SEAMAN Facility:?[facility] Patient ID:?[id number] Site Patient ID:?[id number]. Site :?[id number] Study:?MRI-Abdomen/Pelvis MRCP WO-05/28/2025 11:45:35 AM Ordering Physician:Bonifacio Vanessa Final Report: Indication: Cholelithiasis, assess for obstruction Technique: Multiplanar multisequence imaging was obtained with heavily weighted T2 sequences for MRCP and maximum intensity projection reformatted images. No intravenous contrast. Comparison: Right upper quadrant ultrasound 05/28/2025 Findings: Biliary: No gallbladder wall thickening. Slight layering density, possibly minimal sludge without evidence of cholelithiasis. No pericholecystic fluid. Common duct measures up to 6 millimeters in diameter with tapering distally, normal in caliber. No choledocholithiasis seen. Liver: Normal in contour likely 2 millimeter cyst within the right lobe. Spleen: Unremarkable. Pancreas: Unremarkable. No pancreatic ductal dilatation. Adrenal glands: Unremarkable. Kidneys: Unremarkable. Bowel: No dilated loops of large or small intestine. Impression: Minimal possible gallbladder sludge, otherwise unremarkable MRCP. Specifically, upper normal diameter of the common duct without choledocholithiasis. Considering the most recent ultrasound, the choledocholithiasis questioned on ultrasound likely represented some averaging of the echogenic fat at the posterior wall of the common duct/artifact. Dictated by Otoniel Taylor MD @ 05/28/2025 12:03:21 PM (Electronic Signature) <Rasheeda Miguel MD - Last Filed: 05/28/25 13:35> Discharge Plan Discharge Clinical Impression: Right upper quadrant abdominal pain, Nausea & vomiting <Cheri Dukes MD - Last Filed: 05/28/25 08:32> Prescriptions: No Action alprazolam 0.5 mg tablet PO DAILY dextroamphetamine-amphetamine 20 mg capsule,extended release 24hr 1 cap PO BID <Cheri Dukes MD - Last Filed: 05/28/25 08:32> Follow Up/Referrals: Viki Mao MD [Primary Care Provider, Family Practice] <Cheri Dukes MD - Last Filed: 05/28/25 08:32>
[2025-05-28 05:22] LABS: Hematocrit 44.1 % (33.0-51.0); Hemoglobin* 15.3 gm/dL (12.0-16.0); Immature Granulocytes Pct Auto 0.2 %; Lymphocytes Absolute Auto 1.50 K/uL (0.90-2.90); Mean Corpuscular HGB Conc 35 gm/dL (32-36); Mean Corpuscular Hemoglobin 28 pg (26-34); Mean Corpuscular Volume 81 fL (80-100); RDW Coefficient of Variation % 12.5 % (11.5-15.5); Red Blood Count 5.43 m/uL (4.00-5.20); White Blood Count* 14.64 K/uL (4.50-11.00)
[2025-05-28 05:24] LABS: Immature Granulocytes Abs Auto 0.00 K/uL (0.00-0.30); Slide Review Reflex No
[2025-05-28] MEDS: PROCHLORPERAZINE 5 MG/ML VIAL 10 MG IV (05:35)
[2025-05-28] MEDS: FAMOTIDINE 10 MG/ML inj 20 MG IVP (05:35)
[2025-05-28 05:36] LABS: Albumin* 5.2 g/dL (3.3-5.0); Chloride* 98 mmol/L (96-114); Sodium* 135 mmol/L (135-149)
[2025-05-28 05:37] LABS: Potassium* 3.8 mmol/L (3.6-5.1)
[2025-05-28 05:39] LABS: Alanine Aminotransferase* 23 U/L (4-35); Alkaline Phosphatase* 59 U/L (40-150); Anion Gap 13 mEq/L (7-15); Aspartate Amino Transferase* 28 U/L (12-35); Bilirubin Total* 1.0 mg/dL (0.1-1.5); Blood Urea Nitrogen* 14 mg/dL (5-24); Calcium* 9.8 mg/dL (8.4-10.6); Carbon Dioxide* 24 mmol/L (20-32); Creatinine* 0.6 mg/dL (0.5-1.5); Est. Creatinine Clearance* 119.99; Estimated Glomerular Filt Rate 116 ml/min; Glucose* 115 mg/dL (60-115); Total Protein* 8.5 g/dL (6.0-8.3)
--- NOTE | 2025-05-28 06:01 | CRLHL7_ITS ---
For Patients: As a result of the Century Cures Act, medical imaging exams and procedure reports are released immediately into your electronic medical record. You may view this report before your referring provider. If you have questions, please contact your health care provider. Indication: Right upper quadrant abdomen pain, vomiting TECHNIQUE: Ultrasound abdomen limited. Sonographic images of the right upper quadrant were obtained using morris-scale and color Doppler images. Comparison: None FINDINGS: Gallbladder: No cholelithiasis. Small gallbladder sludge questioned. Normal wall thickness. No pericholecystic fluid. Common bile duct: 11 mm. Echogenic structure within the common duct Impression: Gallbladder sludge. Dilated common duct with echogenic structure within the duct consistent with choledocholithiasis. Dictated by Otoniel Taylor MD @ 05/28/2025 7:09:40 AM (Electronically Signed)
[2025-05-28 06:44] LABS: Appearance Urine Clear (Clear)
[2025-05-28 06:55] LABS: Other Sediment Urine FEW YEAST; Ur HCG Qualitative* Negative (Negative)
--- NOTE | 2025-05-28 08:09 | CRLHL7_ITS ---
For Patients: As a result of the Century Cures Act, medical imaging exams and procedure reports are released immediately into your electronic medical record. You may view this report before your referring provider. If you have questions, please contact your health care provider. Indication: Cholelithiasis, assess for obstruction Technique: Multiplanar multisequence imaging was obtained with heavily weighted T2 sequences for MRCP and maximum intensity projection reformatted images. No intravenous contrast. Comparison: Right upper quadrant ultrasound 05/28/2025 Findings: Biliary: No gallbladder wall thickening. Slight layering density, possibly minimal sludge without evidence of cholelithiasis. No pericholecystic fluid. Common duct measures up to 6 millimeters in diameter with tapering distally, normal in caliber. No choledocholithiasis seen. Liver: Normal in contour likely 2 millimeter cyst within the right lobe. Spleen: Unremarkable. Pancreas: Unremarkable. No pancreatic ductal dilatation. Adrenal glands: Unremarkable. Kidneys: Unremarkable. Bowel: No dilated loops of large or small intestine. Impression: Minimal possible gallbladder sludge, otherwise unremarkable MRCP. Specifically, upper normal diameter of the common duct without choledocholithiasis. Considering the most recent ultrasound, the choledocholithiasis questioned on ultrasound likely represented some averaging of the echogenic fat at the posterior wall of the common duct/artifact. Dictated by Otoniel Taylor MD @ 05/28/2025 12:03:21 PM (Electronically Signed)
[2025-05-28] MEDS: PROCHLORPERAZINE 5 MG/ML VIAL IV ×3 (11:04→23:10)
--- NOTE | 2025-05-28 13:23 | P.GSHP_ITS ---
History of Present Illness History of Present Illness Date Seen: 05/28/25 Chief complaint: vomiting x 5 days Narrative: Suzanna Bansal is a 39 year old female who presents to the emergency department today with 5 days of abdominal pain and vomiting. She has had multiple surgeries for endometriosis, all laparoscopic. She was undergoing an MRI for ongoing evaluation and she states that her discomfort started shortly after the MRI. She states that evening she states that her entire stomach began to hurt. She then vomited throughout Monday and Monday. On Monday evening she went to the ER in [place]. She had been vomiting for several days she received 3 L of fluid. There was reportedly unrevealing though they thought perhaps it could be her gallbladder. There was no sign of acute issue and therefore she was discharged home. She states that she continued to have nausea and vomiting and abdominal pain since. She even vomited ice chips this afternoon. She has pain across her upper abdomen but feels like she has a rock or lump on her right upper abdomen. Since she has not been eating she has not had a bowel movement for a week. She states that the pain radiates to her chest and she thought delete that she was having a heart attack. She has not had any pain like this before but she has had indigestion and vomiting after eating a fatty meal and is wondering if it was related. When she was seen in the emergency department here, she had question of echogenic foci in a dilated common bile duct as well as gallbladder sludge. MRCP did not show choledocholithiasis. She did have an elevated white blood cell count but LFTs were normal. Because of her ongoing pain, she was admitted to the hospital. 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 What is your current living situation?: I presently have a place to live Problems where you live details: N/a Smoking Status: Former smoker Do you use any of these nicotine containing products: None Second hand tobacco smoke exposure: No How often do you have a drink containing alcohol: never AUDIT-C Alcohol total score: 0 Non-prescribed substance use: denies use Caffeine: Yes (20 oz of soda daily.) Meds Home Medications and Allergies Home Medications ?Medication ?Instructions ?Recorded ?Confirmed ?Type alprazolam 0.5 mg tablet 0.5 mg PO DAILY PRN 05/28/25 05/28/25 History dextroamphetamine-amphetamine ER 40 mg PO DAILY 05/28/25 History 20 mg 24hr capsule,extend release Allergies Allergy/AdvReac Type Severity Reaction Status Date / Time doxycycline Allergy Verified 05/28/25 05:03 Sulfa (Sulfonamide Allergy Verified 05/28/25 05:03 Antibiotics) Exam Narrative: Exam Narrative: General appearance: Alert, cooperative, and in no distress Eyes: PERRLA, eye lids clear, and sclera white HENT Head: Normocephalic Ears: External ears normal Pulmonary: Clear to auscultation bilaterally Cardiovascular Heart: Regular rate and rhythm Extremities: warm and well perfused Gastrointestinal Abdominal: Scars consistent with surgical history. She is tender in the epigastric and right upper quadrant region. No masses. Mild Moeller sign. Musculoskeletal: Extremities: Upper: Both upper extremities have normal joint range of motion and intact strength. Lower: Both lower extremities have normal joint range of motion and intact strength. Skin: Normal skin color, texture, and turgor. Neurologic: No focal deficits Psychiatric: Alert, oriented, cooperative, normal affect. Const: Vital Signs, click to edit/add: Vital Signs - 24 hr 05/28/25 04:57 05/28/25 06:16 05/28/25 06:40 Temperature 98 F Pulse Rate 71 77 Pulse Rate [Pulse Oximeter] 77 Respiratory Rate 16 16 Blood Pressure Blood Pressure [Ri ght Upper Arm] 145/95 H Pulse Oximetry 99 97 98 Oxygen Delivery Me thod Room Air 05/28/25 06:51 05/28/25 06:52 05/28/25 06:53 Temperature Pulse Rate 77 67 65 Pulse Rate [Pulse Oximeter] Respiratory Rate 18 Blood Pressure 138/90 H Blood Pressure [Ri ght Upper Arm] Pulse Oximetry 97 99 98 Oxygen Delivery Me thod 05/28/25 07:00 05/28/25 07:15 05/28/25 07:32 Temperature Pulse Rate 72 81 71 Pulse Rate [Pulse Oximeter] Respiratory Rate 16 Blood Pressure Blood Pressure [Ri ght Upper Arm] Pulse Oximetry 96 96 96 Oxygen Delivery Me thod 05/28/25 07:45 05/28/25 08:00 05/28/25 08:15 Temperature Pulse Rate 74 73 71 Pulse Rate [Pulse Oximeter] Respiratory Rate Blood Pressure Blood Pressure [Ri ght Upper Arm] Pulse Oximetry 96 97 97 Oxygen Delivery Me thod 05/28/25 09:42 05/28/25 11:58 Temperature 97.8 F Pulse Rate Pulse Rate [Pulse Oximeter] 89 Respiratory Rate 16 16 Blood Pressure 146/95 H Blood Pressure [Ri ght Upper Arm] 137/89 Pulse Oximetry 97 Oxygen Delivery Me thod Room Air Results Results Labs: White blood cell count is elevated at 14 LFTs, lipase and electrolytes are within normal limits. Additional studies: Ultrasound of the abdomen done 05/28/2025: FINDINGS: Gallbladder: No cholelithiasis. Small gallbladder sludge questioned. Normal wall thickness. No pericholecystic fluid. Common bile duct: 11 mm. Echogenic structure within the common duct Impression: Gallbladder sludge. Dilated common duct with echogenic structure within the duct consistent with choledocholithiasis. Dictated by Otoniel Taylor MD @ 05/28/2025 7:09:40 AM MRCP done 05/28/2025: Impression: Minimal possible gallbladder sludge, otherwise unremarkable MRCP. Specifically, upper normal diameter of the common duct without choledocholithiasis. Considering the most recent ultrasound, the choledocholithiasis questioned on ultrasound likely represented some averaging of the echogenic fat at the posterior wall of the common duct/artifact. Dictated by Otoniel Taylor MD @ 05/28/2025 12:03:21 PM Progress Note:A&P Assessment and plan (1) Nausea & vomiting: Status: Acute (2) Cholecystitis: Status: Acute Plan The patient is a 39-year-old female with cholelithiasis and likely acute cholecystitis with ongoing be nausea, vomiting and upper abdominal pain. No evidence of choledocholithiasis on laboratory values or MRI though she does have biliary dilatation noted. I explained that the treatment for this is laparoscopic cholecystectomy. We discussed the procedure as well as risks and benefits of surgery which include bleeding, infection, bile leak, conversion to open or injury to other structures, specifically the common bile duct. We also discussed recovery. She is agreeable to proceed. We will plan on surgery tomorrow. She may be able to discharge home after surgery. In the meantime we will manage her pain with pain medication, anti nausea meds and IV fluids
[2025-05-28] MEDS: LACTATED RINGERS 1000 ML 1,000 ML 125 ML IV (17:32)
[2025-05-28] MEDS: ONDANSETRON 2 MG/ML inj 4 MG IVP (20:48)
--- NOTE | 2025-05-28 22:35 | PC.NURSE ---
The patient arrived to our unit from the ED after it was determined the patient would be having a gall bladder removal. Experiencing highly significant nausea and vomiting. Any PO intake causes her to vomit. One such instance of small amount of emesis. Order for Zofran received after breakthrough nausea reported but after administering the medication the patient reported an increase in a sensation of the need to vomit. She had reported this as having occurred before administration but the patient wished to try it again via IV; previously administered as a suppository pre-admission. Pain of the upper gastric area. Abdomen soft to the touch. Bowel sounds are hypoactive to absent. She reports not having eating anything over several days and not having passed stool for six days. Vitally they are within acceptable ranges. The patient appeared on track for their procedure as time of transfer of care approached. NPO at midnight. ?
[2025-05-29] VITALS (25 sets, daily range): BP systolic 122–140; BP diastolic 80–94; PULSE 72–94; RESP 12–18; TEMP 36.3–37; O2SAT 92–97; BMI 31.4
[2025-05-29] MEDS: LACTATED RINGERS 1000 ML 1,000 ML 125 ML IV ×2 (02:02→11:54)
[2025-05-29] MEDS: PROCHLORPERAZINE 5 MG/ML VIAL IV ×4 (04:59→23:27)
--- NOTE | 2025-05-29 05:50 | PC.NURSE ---
The patient is noted to have abm pain and nausea throughout the night, although seemed like the patient was able to get some rest. NPO @ 0000, LR infusing. independent when up. Call light within reach. Preop checklist was completed, and surgery is scheduled for later this AM. Kimberli DELONG BSN
[2025-05-29 06:38] LABS: Hematocrit 40.9 % (33.0-51.0); Hemoglobin* 13.8 gm/dL (12.0-16.0); Immature Granulocytes Abs Auto 0.06 K/uL (0.00-0.30); Immature Granulocytes Pct Auto 0.6 %; Lymphocytes Absolute Auto 1.60 K/uL (0.90-2.90); Mean Corpuscular HGB Conc 34 gm/dL (32-36); Mean Corpuscular Hemoglobin 28 pg (26-34); Mean Corpuscular Volume 83 fL (80-100); RDW Coefficient of Variation % 12.4 % (11.5-15.5); Red Blood Count 4.96 m/uL (4.00-5.20); White Blood Count* 9.78 K/uL (4.50-11.00)
[2025-05-29 06:44] LABS: Slide Review Reflex No
[2025-05-29 06:54] LABS: Chloride* 100 mmol/L (96-114); Potassium* 3.1 mmol/L (3.6-5.1); Sodium* 135 mmol/L (135-149)
[2025-05-29 06:57] LABS: Blood Urea Nitrogen* 11 mg/dL (5-24); Creatinine* 0.5 mg/dL (0.5-1.5); Est. Creatinine Clearance* 143.99; Estimated Glomerular Filt Rate 121 ml/min
[2025-05-29 06:58] LABS: Anion Gap 7 mEq/L (7-15); Calcium* 8.6 mg/dL (8.4-10.6); Carbon Dioxide* 28 mmol/L (20-32); Glucose* 96 mg/dL (60-115)
[2025-05-29] MEDS: POTASSIUM CHLORIDE 10 MEQ/100 ML PIGGYBACK 100 MEQ IVPB ×2 (09:42→15:43)
--- NOTE | 2025-05-29 09:47 | PM.GSPN ---
Subjective Subjective Date Seen: 05/29/25 Interval history: Patient had nausea and some pain overnight, but felt it was manageable. No questions about surgery today. Exam Narrative: Exam Narrative: General: No acute distress CV: Regular rate Const: Vital Signs, click to edit/add: Vital Signs - 24 hr 05/28/25 11:58 05/28/25 11:58 05/28/25 13:43 Temperature 97.8 F Pulse Rate 82 Pulse Rate [Pulse Oximeter] 89 Pulse Rate [Right Pulse Oximeter] Respiratory Rate 16 Blood Pressure 137/78 Blood Pressure [Ri ght Arm] Blood Pressure [Ri ght Upper Arm] 137/89 Pulse Oximetry 97 95 Oxygen Delivery Me thod Room Air 05/28/25 13:45 05/28/25 14:00 05/28/25 16:10 Temperature 98.1 F Pulse Rate 81 84 Pulse Rate [Pulse Oximeter] Pulse Rate [Right Pulse Oximeter] Respiratory Rate 16 16 Blood Pressure Blood Pressure [Ri ght Arm] 141/93 H Blood Pressure [Ri ght Upper Arm] Pulse Oximetry 94 96 97 Oxygen Delivery Me thod Room Air 05/28/25 16:30 05/28/25 18:40 05/28/25 23:00 Temperature 98.9 F 98.7 F Pulse Rate Pulse Rate [Pulse Oximeter] Pulse Rate [Right Pulse Oximeter] 73 69 Respiratory Rate 20 18 16 Blood Pressure Blood Pressure [Ri ght Arm] 121/77 125/85 Blood Pressure [Ri ght Upper Arm] Pulse Oximetry 97 95 95 Oxygen Delivery Me thod Room Air Room Air Room Air 05/28/25 23:00 05/29/25 03:17 05/29/25 07:00 Temperature 98.6 F Pulse Rate Pulse Rate [Pulse Oximeter] Pulse Rate [Right Pulse Oximeter] 75 Respiratory Rate 16 16 16 Blood Pressure Blood Pressure [Ri ght Arm] 137/87 Blood Pressure [Ri ght Upper Arm] Pulse Oximetry 93 94 97 Oxygen Delivery Me thod Room Air Room Air Room Air 05/29/25 07:00 Temperature 98.5 F Pulse Rate Pulse Rate [Pulse Oximeter] Pulse Rate [Right Pulse Oximeter] 87 Respiratory Rate 16 Blood Pressure Blood Pressure [Ri ght Arm] 133/86 Blood Pressure [Ri ght Upper Arm] Pulse Oximetry 97 Oxygen Delivery Me thod Room Air Labs/Imaging Labs Labs: White blood cell count is normal today Potassium is low at 3.1. Progress Note:A&P Assessment and plan (1) Cholecystitis: Status: Acute (2) Hypokalemia: Status: Acute Plan The patient is a 39-year-old female with likely cholecystitis. We are planning for cholecystectomy today. Hypokalemia seen, likely from vomiting. We will replace potassium IV this morning. Hopefully she will be able to replace her potassium orally after surgery. Patient's questions are answered and she signed informed consent.
--- NOTE | 2025-05-29 09:49 | P.GSOP_ITS ---
Operative Note Date of procedure: 05/29/25 Pre-op diagnosis: Cholecystitis Post-op diagnosis: Same Type of Procedure: Laparoscopic cholecystectomy Indications: The patient is a 39-year-old female who presented to the emergency department with 5 days of nausea vomiting and upper abdominal pain. Workup revealed gallstones. She was noted to have a dilated common bile duct on ultrasound though LFTs were normal. There was concern for an echogenic structure in the common bile duct. MRCP however was negative. Because of her ongoing pain and nausea I recommended cholecystectomy and after discussion of risks and benefits she agreed to proceed. Procedure Description: After discussing the risks and benefits of the procedure, the patient signed informed consent.? The operative site was marked and the patient was brought to the operating room and placed on the operating table in supine position.? Care was taken to pad the patient's pressure points.?? The patient was then intubated by anesthesia.?? The operative site was then prepped and draped in the usual sterile fashion.? A time-out was then performed. Entrance to the abdomen was gained via a 5 mm Visiport in the left upper quadrant. The abdomen was insufflated and briefly surveyed for signs of injury. There was none. A 10 mm umbilical port was placed as well as 2 working ports along the right costal margin, all under direct vision. The patient was then placed in reverse Trendelenburg position with the right side up. The infundibulum was grasped. The gallbladder fundus was grasped and retracted cephalad. A small amount of dissection was needed to free omental adhesions from the gallbladder. The patient's left lobe of the liver was noted to be enlarged and sat in front of the gallbladder infundibulum, however I was able to work around this initially and, after incising the serosa of the gallbladder, I was able to mobilize the gallbladder neck enough to work. A combination of hook cautery and blunt dissection was used to carefully dissect out the cystic duct and artery. The artery was isolated and clipped with 2 clips proximal and 1 clip distal. This was done distally, at the gallbladder neck. The infundibulum was tapering into what appeared to be a slightly dilated cystic duct. Once the artery was divided, I was able to better dissect this circumferentially. This was done with hook cautery and a [place] dissector. I dissected out the cystic duct circumferentially and also dissected the gallbladder off the cystic plate, ensuring there were no additional structures going into the gallbladder. Once this was done, I palpated the cystic duct. It was dilated. There were no obvious stones noted to be impacted within. I placed a clip across the gallbladder neck and then created a small ductotomy. There was sludge noted in the cystic duct, however no stones were noted. I then placed 2 clips across the cystic duct distally. The duct was then divided. The 2 clips did just cross the duct, however given that it was dilated I elected to additionally place a 2- 0 PDS endoloop on the cystic duct stump. Once this was done, the gallbladder was dissected off the liver bed using cautery. It was then removed from the abdomen using an Endo-Catch bag. The gallbladder bed was surveyed for hemostasis which appeared adequate. A small amount of bile which had spilled was suctioned from the abdomen. The ports were then removed and the abdomen desufflated. The umbilical port fascia was closed with 0 Vicryl. The skin was closed with absorbable subcuticular suture. Sterile dressings were then applied Instrument sponge and needle counts were correct at the end of the case. The patient was then woken and transferred to the PACU in stable condition. ? The patient tolerated the procedure well. Findings: Distended gallbladder with dilated cystic duct. Sludge noted within cystic duct Anesthesia: GETA Surgeon: Latricia Pinedo MD Estimated blood loss (mL): 5 Specimen: Gallbladder Condition: stable Disposition: PACU
[2025-05-29] MEDS: BUPIVACAINE 0.25% 30 ML INJECTION (12:38)
--- NOTE | 2025-05-29 12:58 | P.ANES_ITS ---
Anesthesia Charges Start Date/Time Anesthesia Start Date: 05/29/25 Anesthesia Start Time: 11:36 Stop Date/Time Anesthesia Stop Date: 05/29/25 Anesthesia Stop Time: 12:59 Coding CPT Codes CPT Codes: ANESTH SURG UPPER ABDOMEN - 84969 ([id number]) P2 - PATIENT W/MILD SYST DISEASE, QK - CAN TOP SETTER 2-4 CNCRNT ANES PROC, QX - GALLERY OR MUSEUM GUIDE SVC W/ MD MED DIRECTION
--- NOTE | 2025-05-29 12:58 | W.ANESCHARGE ---
Anesthesia Charges Start Date/Time Anesthesia Start Date: 05/29/25 Anesthesia Start Time: 11:36 Stop Date/Time Anesthesia Stop Date: 05/29/25 Anesthesia Stop Time: 12:59 Coding CPT Codes CPT Codes: ANESTH SURG UPPER ABDOMEN - 34805 ([id number]) P2 - PATIENT W/MILD SYST DISEASE, QK - POOL INSTALLER 2-4 CNCRNT ANES PROC, QX - CAD DRAFTSMAN SVC W/ MD MED DIRECTION
--- NOTE | 2025-05-29 13:34 | P.ANES_ITS ---
Anesthesia Charges Start Date/Time Anesthesia Start Date: 05/29/25 Anesthesia Start Time: 11:36 Stop Date/Time Anesthesia Stop Date: 05/29/25 Anesthesia Stop Time: 12:59 Coding CPT Codes CPT Codes: ANESTH SURG UPPER ABDOMEN - 02562 ([id number]) QK - DATA INTEGRITY CONSULTANT 2-4 CNCRNT ANES PROC, QX - ENTERPRISE SOFTWARE DEVELOPER SVC W/ MD MED DIRECTION, P2 - PATIENT W/MILD SYST DISEASE
--- NOTE | 2025-05-29 13:34 | W.ANESCHARGE ---
Anesthesia Charges Start Date/Time Anesthesia Start Date: 05/29/25 Anesthesia Start Time: 11:36 Stop Date/Time Anesthesia Stop Date: 05/29/25 Anesthesia Stop Time: 12:59 Coding CPT Codes CPT Codes: ANESTH SURG UPPER ABDOMEN - 52443 ([id number]) QK - CENTERLESS GRINDING MACHINE ADJUSTER 2-4 CNCRNT ANES PROC, QX - BAG LOADER MACHINE OPERATOR SVC W/ MD MED DIRECTION, P2 - PATIENT W/MILD SYST DISEASE
--- NOTE | 2025-05-29 15:09 | PC.NURSE ---
End of shift [id number]: Pt arrived back to the unit @ 1344. Lap sites remain CDI, primary dressing being steri strips. Pt has LR running @ 75 mL/hr. Pt refuses water and ice chips at this time and requests to sleep. Pt remains vitally stable on room air. Denies pain and nausea at this time. Call light within reach. Active ice applied to the abdomen.
[2025-05-29] MEDS: SODIUM CHLORIDE 0.9 % (FLUSH) 10 ML SYRINGE IVF ×2 (15:29→17:11)
[2025-05-29] MEDS: LACTATED RINGERS 1000 ML 1,000 ML 100 ML IV (17:06)
[2025-05-29] MEDS: HYDROCODONE-ACETAMIN 5-325 MG 1 TAB PO ×2 (17:11→20:14)
[2025-05-29] MEDS: MELATONIN 3 MG TABLET PO (20:14)
--- NOTE | 2025-05-29 23:13 | PC.NURSE ---
Pt needed encouragement to get up from her bed and ambulate the unit this evening. She did walk throughout the halls x2 without difficulty. Advanced to regular diet with dinner, pt seemed to tolerate well and ate approximately 50%. She did later c/o of increased nausea and was given a PRN dose of compazine. No emesis occurred.
[2025-05-30] VITALS (9 sets, daily range): BP systolic 122–133; BP diastolic 78–87; PULSE 71–91; RESP 16–20; TEMP 36.7–36.8; O2SAT 93–97
[2025-05-30] MEDS: HYDROCODONE-ACETAMIN 5-325 MG 1 TAB PO ×3 (00:10→09:41)
--- NOTE | 2025-05-30 05:08 | PC.NURSE ---
Shift note: Patient is post day 1. LAP sites clean and dry. Pain was rated at 6 and PRN pain medication given. Vitally stable. Patient is independent in room. Patient refused SCD. Incentive Spirometry has been performed Q1h.
[2025-05-30] MEDS: PROCHLORPERAZINE 5 MG/ML VIAL IV ×2 (05:52→14:40)
[2025-05-30 06:55] LABS: Chloride* 99 mmol/L (96-114); Potassium* 3.3 mmol/L (3.6-5.1); Sodium* 135 mmol/L (135-149)
[2025-05-30 06:58] LABS: Anion Gap 8 mEq/L (7-15); Blood Urea Nitrogen* 9 mg/dL (5-24); Calcium* 9.0 mg/dL (8.4-10.6); Carbon Dioxide* 28 mmol/L (20-32); Creatinine* 0.6 mg/dL (0.5-1.5); Est. Creatinine Clearance* 119.99; Estimated Glomerular Filt Rate 116 ml/min; Glucose* 100 mg/dL (60-115)
[2025-05-30] MEDS: ONDANSETRON ODT 4 MG TAB PO (09:41)
[2025-05-30] MEDS: POTASSIUM CHLORIDE 10 MEQ CAPSULE ER 40 MEQ PO (09:41)
[2025-05-30 10:16] LABS: Albumin* 4.0 g/dL (3.3-5.0)
[2025-05-30 10:19] LABS: Alanine Aminotransferase* 102 U/L (4-35); Alkaline Phosphatase* 63 U/L (40-150); Aspartate Amino Transferase* 104 U/L (12-35); Bilirubin Direct* 0.3 mg/dL (0.0-0.5); Bilirubin Total* 0.9 mg/dL (0.1-1.5); Total Protein* 6.6 g/dL (6.0-8.3)
--- NOTE | 2025-05-30 10:23 | P.GSPN_ITS ---
Subjective Subjective Date Seen: 05/30/25 Interval history: Overall, Suzanna is still having some nausea. She was able to eat last night, however this morning she did not feel very well after eating. She has not vomited, but has had nausea. She is only taking 5 mg of hydrocodone for pain. She has been using IS. Exam Narrative: Exam Narrative: General: No acute distress Respiratory: Clear to auscultation bilaterally CV: Regular rate and rhythm Abdomen: incisions clean, dry and intact without erythema. Const: Vital Signs, click to edit/add: Vital Signs - 24 hr 05/29/25 10:33 05/29/25 12:54 05/29/25 13:00 Temperature 98.3 F 97.4 F L Pulse Rate 93 92 Pulse Rate [Pulse Oximeter] Pulse Rate [Right Pulse Oximeter] 84 Respiratory Rate 18 14 14 Blood Pressure 135/90 H 135/91 H Blood Pressure [Ri ght Arm] 137/84 Pulse Oximetry 96 94 [facility] Room [facility] Room Air 05/29/25 13:05 05/29/25 13:10 05/29/25 13:15 Temperature 97.6 F Pulse Rate 80 86 80 Pulse Rate [Pulse Oximeter] Pulse Rate [Right Pulse Oximeter] Respiratory Rate 16 14 14 Blood Pressure 134/83 138/91 H 138/87 Blood Pressure [Ri ght Arm] Pulse Oximetry 94 95 95 [facility] Room Air Room Air 05/29/25 13:20 05/29/25 13:25 05/29/25 13:30 Temperature 97.7 F Pulse Rate 77 72 74 Pulse Rate [Pulse Oximeter] Pulse Rate [Right Pulse Oximeter] Respiratory Rate 12 14 12 Blood Pressure 139/92 H 140/88 H 128/83 Blood Pressure [Ri ght Arm] Pulse Oximetry 96 96 96 [facility] Room Air Room Air 05/29/25 13:35 05/29/25 13:44 05/29/25 14:00 Temperature 97.6 F 97.9 F 98.1 F Pulse Rate 84 80 77 Pulse Rate [Pulse Oximeter] Pulse Rate [Right Pulse Oximeter] Respiratory Rate 14 16 16 Blood Pressure 124/81 129/80 123/83 Blood Pressure [Ri ght Arm] Pulse Oximetry 97 92 92 [facility] Room Air Room Air 05/29/25 14:15 05/29/25 14:30 05/29/25 14:45 Temperature 98.1 F 98.4 F 98.5 F Pulse Rate 79 76 79 Pulse Rate [Pulse Oximeter] Pulse Rate [Right Pulse Oximeter] Respiratory Rate 16 16 16 Blood Pressure 122/86 123/83 125/82 Blood Pressure [Ri ght Arm] Pulse Oximetry 93 92 94 Oxygen Delivery Me thod Room Air Room Air Room Air 05/29/25 15:00 05/29/25 15:00 05/29/25 15:15 Temperature 98 F Pulse Rate 79 Pulse Rate [Pulse Oximeter] 79 Pulse Rate [Right Pulse Oximeter] Respiratory Rate 16 16 16 Blood Pressure 122/85 Blood Pressure [Ri ght Arm] Pulse Oximetry 93 93 Oxygen Delivery Tn thod Room Air Room Air 05/29/25 15:45 05/29/25 16:45 05/29/25 17:45 Temperature 98.2 F Pulse Rate 75 93 89 Pulse Rate [Pulse Oximeter] Pulse Rate [Right Pulse Oximeter] Respiratory Rate 16 16 16 Blood Pressure 123/94 H 137/86 137/90 H Blood Pressure [Ri ght Arm] Pulse Oximetry 94 96 97 Oxygen Delivery Tn thod Room Air Room Air Room Air 05/29/25 18:45 05/29/25 19:45 05/29/25 23:00 Temperature Pulse Rate 94 92 Pulse Rate [Pulse Oximeter] 80 Pulse Rate [Right Pulse Oximeter] Respiratory Rate 16 16 16 Blood Pressure 137/90 H 140/87 H Blood Pressure [Ri ght Arm] Pulse Oximetry 95 Oxygen Delivery Tn thod Room Air Room Air 05/29/25 23:00 05/29/25 23:00 05/30/25 03:00 Temperature 98.2 F 98.2 F Pulse Rate Pulse Rate [Pulse Oximeter] 79 80 Pulse Rate [Right Pulse Oximeter] Respiratory Rate 16 16 16 Blood Pressure Blood Pressure [Ri ght Arm] 123/81 127/82 Pulse Oximetry 97 97 94 Oxygen Delivery Me thod Room Air Room Air Room Air 05/30/25 09:00 05/30/25 09:02 Temperature 98.1 F Pulse Rate Pulse Rate [Pulse Oximeter] 91 Pulse Rate [Right Pulse Oximeter] Respiratory Rate 20 20 Blood Pressure Blood Pressure [Ri ght Arm] 122/78 Pulse Oximetry 95 95 Oxygen Delivery Me thod Room Air Room Air Labs/Imaging Labs Labs: White blood cell count is 9.7. Hemoglobin 13.8 Potassium 3.3 LFTs normal except for mild AST and ALT elevation in the low 100s. Lipase normal. Progress Note:A&P Assessment and plan (1) Hypokalemia: Status: Acute (2) Status post cholecystectomy: Status: Acute (3) Nausea & vomiting: Status: Acute Plan The patient is a 39-year-old female who is postop day 1 status post laparoscopic cholecystectomy for presumed cholecystitis. She has improved pain postoperatively, however continues to have some nausea with eating this morning. Overall she is improved except for ongoing nausea. -potassium replaced today orally, however she vomited approximately an hour later. - add scopolamine and recheck potassium in 1 hour. If still low will replace IV. -ambulate and encourage IS -continue regular diet as tolerated. -patient minimizing opioid pain medicine which will likely help with nausea.
[2025-05-30] MEDS: SODIUM CHLORIDE 0.9 % (FLUSH) 10 ML SYRINGE IVF (11:23)
[2025-05-30] MEDS: SCOPOLAMINE 1 MG/3 DAY PATCH 1 PATCH TRANSDERMA (11:27)
[2025-05-30 12:29] LABS: Potassium* 3.3 mmol/L (3.6-5.1)
[2025-05-30] MEDS: POTASSIUM CHLORIDE 10 MEQ/100 ML PIGGYBACK 100 MEQ IVPB ×2 (14:45→16:49)
--- NOTE | 2025-05-30 16:04 | PC.NURSE ---
End of shift [id number] - pt alert, oriented, pleasant. Up independently in room. Tolerating RA, reported nausea and emesis during shift. Given medication per MAR with pt reporting little improvement. MD made aware. Pt reported abdominal pain as 6-8/10, increased pain reported after emesis. Medication given per MAR with pt reporting improved comfort. Poor appetite noted, tolerating regular fluids. Lap sites x4 CDI, ice pack given for comfort. Pt appears to be resting at end of shift with call light within reach.
[2025-05-30] MEDS: POTASSIUM CHLORIDE 10 MEQ, LIDOCAINE 1 % 1 ML in 0.9 % SODIUM CHLORIDE 100 ml 100 ML 106 MEQ IVPB (18:30)
[2025-05-31 02:00] VITALS: BP 127/83; PULSE 78; RESP 16; TEMP 36.8; O2SAT 94
[2025-05-31] MEDS: HYDROCODONE-ACETAMIN 5-325 MG 1 TAB PO (04:36)
[2025-05-31 06:41] LABS: Chloride* 98 mmol/L (96-114); Sodium* 134 mmol/L (135-149)
[2025-05-31 06:42] LABS: Potassium* 3.4 mmol/L (3.6-5.1)
[2025-05-31 06:44] LABS: Blood Urea Nitrogen* 9 mg/dL (5-24); Creatinine* 0.6 mg/dL (0.5-1.5); Est. Creatinine Clearance* 119.99; Estimated Glomerular Filt Rate 116 ml/min
[2025-05-31 06:45] LABS: Anion Gap 10 mEq/L (7-15); Calcium* 9.1 mg/dL (8.4-10.6); Carbon Dioxide* 26 mmol/L (20-32); Glucose* 109 mg/dL (60-115)
[2025-05-31 07:00] VITALS: PULSE 78; RESP 16; O2SAT 94
--- NOTE | 2025-05-31 07:32 | PC.NURSE ---
The patient was awake intermittently throughout the night. Reported mild nausea/ some pain at the beginning of my shift. The patient decided to ambulate in the halls and shower, this helped with the patients symptoms. The patient refused oral pain medication for her pain last evening, IV was given. Early this AM the patient was noted to get quite nauseous and had 100 emesis of bile. The patient was encouraged to eat, she stated that she believed the norco triggered the vomiting episode. I told her to let the surgeon know. Call light within reach. Kimberli DELONG BSN
[2025-05-31] MEDS: PROCHLORPERAZINE 5 MG/ML VIAL IV (08:15)
[2025-05-31] MEDS: POTASSIUM CHLORIDE 10 MEQ/100 ML PIGGYBACK 100 MEQ IVPB ×2 (09:44→11:16)
[2025-05-31] MEDS: FAMOTIDINE 20 MG TABLET PO (09:45)
[2025-05-31 10:00] VITALS: BP 142/92; PULSE 71; RESP 18; TEMP 36.7; O2SAT 95
--- NOTE | 2025-05-31 14:42 | PM.DS1 ---
DS: Providers Provider Date Seen: 05/31/25 Date of admission: 05/30/25 15:14 Primary care physician: Viki Mao MD Admitting Clinician: Latricia Pinedo MD, FACS Attending Physician on discharge: Latricia Pinedo MD DS: Diagnosis Discharge Diagnosis (1) Status post cholecystectomy: Status: Acute DS: Summary Hospital Course Hospital Course: The patient is a 39-year-old female who was admitted to the hospital with nausea vomiting for several days as well as right upper quadrant pain. Workup revealed gallbladder sludge. She did undergo MRCP for concern for choledocholithiasis given a dilated common bile duct an echogenic focus noted in the common bile duct. MRCP was negative. She underwent cholecystectomy the following day. Because of postoperative nausea and vomiting she remained inpatient until postop day 2. She had no further vomiting - it was felt to be secondary to the pain medication per the patient - and was tolerating liquids but did not want to eat solids prior to discharge. She was mildly hypokalemic as well however this had resolved at the time of discharge after potassium replacement. She was deemed safe for discharge home. Time Spent with Patient Time attestation: Total time spent providing and/or coordinating discharge services: Exam Narrative: Exam Narrative: General: No acute distress CV: Regular rate Respiratory: Breathing nonlabored on room air Abdomen: incisions clean, dry and intact without erythema. Const: Vital Signs, click to edit/add: Vital Signs - 24 hr 05/30/25 15:00 05/30/25 16:00 05/30/25 16:06 Temperature 98.2 F Pulse Rate [Pulse Oximeter] 88 88 Respiratory Rate 16 16 16 Blood Pressure [Ri ght Arm] 133/87 Pulse Oximetry 96 96 Oxygen Delivery Me thod Room Air Room Air 05/30/25 19:56 05/30/25 22:27 05/30/25 23:00 Temperature 98.3 F Pulse Rate [Pulse Oximeter] 71 79 Respiratory Rate 18 18 Blood Pressure [Ri ght Arm] 131/83 129/79 Pulse Oximetry 97 93 93 Oxygen Delivery Me thod Room Air Room Air Room Air 05/31/25 02:00 05/31/25 07:00 05/31/25 07:00 Temperature 98.2 F Pulse Rate [Pulse Oximeter] 78 78 Respiratory Rate 16 16 16 Blood Pressure [Ri ght Arm] 127/83 Pulse Oximetry 94 94 Oxygen Delivery Me thod Room Air Room Air 05/31/25 10:00 Temperature 98.1 F Pulse Rate [Pulse Oximeter] 71 Respiratory Rate 18 Blood Pressure [Ri t Arm] 142/92 H Pulse Oximetry 95 Oxygen Delivery Me thod Room Air DS: Data Data Completed and Pending Labs on day of discharge: Labs from last 24 hours 05/31/25 06:01 Sodium 134 L Potassium 3.4 L Chloride 98 Carbon Dioxide 26 Anion Gap 10 BUN 9 Creatinine 0.6 Estimated Creat Clear 119.99 Estimated GFR 116 Glucose 109 Calcium 9.1 Discharge Plan Discharge Disposition: Home, Self-Care Date of Admission: 05/30/25 15:14 Attending Provider on Discharge: Latricia Pinedo Primary Care Provider: Viki Mao Condition: Stable Anticipated Discharge Date/Time: 05/31/25 17:00 Discharge Medications: New ketorolac 10 mg tablet 10 mg PO TID PRN (Reason: pain) 5 Days Qty: 15 0RF prochlorperazine maleate [Compazine] 5 mg tablet 5 mg PO TID PRNQty: 10 0RF Rx Instructions: For nausea Continued alprazolam 0.5 mg tablet 0.5 mg PO DAILY PRN dextroamphetamine-amphetamine 20 mg capsule,extended release 24hr 40 mg PO DAILY Discharge Orders: Discharge Order (Routine); Ordered 05/31/25 Ordered By: Latricia Pinedo Patient Education: General Anesthesia (DC), NH+C Post-Operative Instructions: Laparoscopic Cholecystectomy Additional Instructions: Wound care: Your sutures are under the skin and will dissolve over time. Leave steri strips (white bandages) over incisions until they fall off (or remove after 7 days). OK to shower tomorrow but avoid bathing, soaking or swimming for 2 weeks. Pat the incisions dry. No need to wash or scrub the area. Apply ice to the area as needed for swelling. It is also OK to use a heating pad if this provides more comfort to you. Pain control: Take Ketorolac first for pain. Do not take additional Ibuprofen or Naproxen (Motrin, Aleve, Advil, etc) while you are taking this medication. Take acetaminophen as directed on packaging for pain. You may alternate this with the Ketoralac. I recommend that you also take famotidine, 20 mg daily the 1st week after surgery to see if this helps with your nausea. Take an [id number] stool softener while you are taking prescribed pain medications to help alleviate constipation. I recommend Senna and/or Colace. Take as directed on package. If you have not had a bowel movement in 3 days, try taking Miralax as directed on the package. All of these are available over the counter. Follow-up Follow up with Dr. Pinedo in 2-3 weeks Please call if you are experiencing severe pain, nausea, vomiting, difficulty urinating, fever or have not had bowel movement in 4 days after surgery. Activity Level: Activity as Tolerated and No strenuous activity Activity Detail: No lifting more than 20 pounds for 2 weeks. Discharge Diet: Regular Follow Up Appointments: Latricia Pinedo MD [Staff Physician, General Surgery] Viki Mao MD [Primary Care Provider, Family Practice] Forms: [employer] Info Instructions
[2025-05-31 15:00] VITALS: RESP 18; O2SAT 95
--- NOTE | 2025-05-31 17:15 | PC.NURSE ---
Discharge: VSS, afebrile. SpO2 maintained above 90% on RA. IV removed with tip intact. Discharge instructions provided, all questions answered. D/C to home.
== END 2025-05-31 16:45 | disposition home or self-care (01) | DRG 263 ==
LOC: ED 13:48 → OR 14:57 → MEDSURG 14:58 → OR 05-30 17:22 → MEDSURG 05-30 17:22
PROVIDERS: Admitting Provider Surgery; Emergency Provider Emergency Medicine; PCP Family Medicine; Visit Provider Surgery
PROC: 0FT44ZZ Resection of Gallbladder, Percutaneous Endoscopic Approach (ICD-10-PCS; CPT 47562; principal; 2025-05-29 12:00)
DX: K81.9 Cholecystitis, unspecified (principal); E87.6 Hypokalemia; R11.2 Nausea with vomiting, unspecified; N80.9 Endometriosis, unspecified
CPT/HCPCS: 00790; 36415; 74181; 76705; 80048; 80053; 80076; 81001; 81025; 83690; 84132; 84703; 85025; 87086; 88304; 99285; A9270; J0665; J0690; J0780; J1100; J1171; J1200; J1308; J1885; J2250; J2405; J2704; J2710; J3010; J3480; J7030; J7050; J7120